=== PATIENT | female | born 1985 | race Caucasian/White ===

== ENCOUNTER → 2018-01-10 | Outpatient (CLI) | payer OTHER ==
[~2018-01-10] MED LIST: ALBUTEROL2.5 MG/0.5; APAP500 OR; BENADRYL25 MG; DERMOPLAST SPRA56 ML TOP; DOXYCYCLINE 10100 MG PO; FLEXERIL PO; HYDROCORTISONE 1% TOP; IBUPROFEN 800800 M1 OR; IBUPROFEN 800800 M1 PO; IBUPROFEN 800800 MG PO; KEFLEX500 MG PO; LANOLIN56 GM TOP; LORTABELXR PO; NORCO 5-325 TA1 EACH PO; NORFLEX100 MG PO; PENICILLIN VK250 MG PO; PERCOCET PO; PREDNISONE 20 M20 MG PO; PRENATAL; PROAIR HFA8.5 GM; PROVENTIL IH; TUCKS MEDICATE1 EAC1 TOP; VISTARIL
== END ==
LOC: MRI 09:32
DX: M51.34 Other intervertebral disc degeneration, thoracic region (principal); M50.222 Other cervical disc displacement at C5-C6 level; M48.02 Spinal stenosis, cervical region